=== PATIENT | male | born 1950 | race Caucasian/White ===

== ENCOUNTER 2023-07-09 13:32 | Outpatient (CLI) | payer MEDICARE | END 2023-07-09 13:33 | disposition home or self-care (01) | LOC: SCSMRI 13:32 | PROVIDERS: ATTEND Internal Medicine Hematology & Oncology | DX: C20 Malignant neoplasm of rectum (principal); C78.7 Secondary malignant neoplasm of liver and intrahepatic bile duct; G93.89 Other specified disorders of brain | CPT/HCPCS: 70553 ==